=== PATIENT | female | born 1990 | race Caucasian/White ===

== ENCOUNTER 2020-03-01 15:47 | Emergency (ER) | payer OTHER ==
--- NOTE | 2020-03-01 16:16 | ED Physician Documentation ---
History of Present Illness - Stated complaint Stated Complaint: SOA - Chief complaint Chief Complaint: Resp - History obtained from History obtained from: Patient - History of Present Illness Timing: Today Pain level max: 0 Pain level now: 0 - Additonal information Additional information: 29-year-old female states that for the past week or so she every once in a while feels as if she is short of breath. She states it feels like she needs to yawn. This has not happened to her before. No fevers. No coughing. No history of asthma. Has never used inhalers. Does not smoke. She moved here about a year ago from [place]. Lived in [place] before that. Denies any possibility of . Is not breast-feeding. Review of Systems Constitutional: denies: Fever, Chills Nose: denies: Rhinorrhea / runny nose, Congestion Throat: denies: Sore throat Respiratory: denies: Cough GI: denies: Nausea, Vomiting, Diarrhea Skin: denies: Rash Musculoskeletal: denies: Neck pain Neurologic: denies: Headache PD PAST MEDICAL HISTORY - Past Medical History Past Medical History: No - Past Surgical History Past Surgical History: No - Present Medications Home Medications: Ambulatory Orders Medication Instructions Recorded Confirmed Albuterol Sulf [Ventolin Hfa 1 - 2 puffs INH Q4HR PRN #1 inhaler 03/01/20 Inhaler] - Allergies Allergies/Adverse Reactions: Allergies Allergy/AdvReac Type Severity Reaction Status Date / Time No Known Drug Allergies Allergy Verified 03/01/20 15:55 - Social History Does the pt smoke?: No Smoking Status: Never smoker Does the pt drink ETOH?: Yes Does the pt have substance abuse?: No - Immunizations Immunizations are current?: Yes PD ED PE NORMAL - Vitals Vital signs reviewed: Yes - General General: Alert and oriented X 3, No acute distress - HEENT HEENT: Moist mucous membranes - Neck Neck: Supple, no meningeal sign - Cardiac Cardiac: RRR - Respiratory Respiratory: No respiratory distress, Other (Diminished breath sounds and mild wheezing bilaterally) - Abdomen Abdomen: Soft, Non tender, Non distended - Derm Derm: Warm and dry - Neuro Neuro: Alert and oriented X 3 Results - Vitals Vitals: Vital Signs - 24 hr 03/01/20 03/01/20 03/01/20 15:50 16:25 17:01 Temperature 36.7 C 37.1 C Heart Rate 74 80 88 Respiratory 18 18 14 Rate Blood Pressure 132/96 H 133/66 H O2 Saturation 100 99 Oxygen O2 Source Room air - Rads (name of study) Chest x-ray Radiology: Prelim report reviewed, EMP read contemporaneously, See rad report (No acute abnormality) PD MEDICAL DECISION MAKING - ED course Complexity details: reviewed results, re-evaluated patient, considered differential, d/w patient ED course: 29-year-old female feels better after nebulizer treatment. Breathing easier. Wheezing resolved. Will prescribe an inhaler for home. She is well-appearing, nontoxic. No tachypnea or hypoxia. No evidence of pulmonary embolus. Patient counseled regarding signs and symptoms for which I believe and urgent re- evaluation would be necessary. Patient with good understanding of and agreement to plan and is comfortable going home at this time This document was made in part using voice recognition software. While efforts are made to proofread this document, sound alike and grammatical errors may occur. Departure - Departure Disposition: 01 Home, Self Care Clinical Impression: Dyspnea Qualifiers: Dyspnea type: shortness of breath Qualified Code(s): R06.02 - Shortness of breath Asthma Qualifiers: Asthma severity: mild Asthma persistence: intermittent Asthma complication type: uncomplicated Qualified Code(s): J45.20 - Mild intermittent asthma, uncomplicated Condition: Good Instructions: ED Reactive Airway Disease Follow-Up: DAGMAR SANCHEZ DO [Primary Care Provider] - As Needed Prescriptions: Albuterol Sulf [Ventolin Hfa Inhaler] 1 - 2 puffs INH Q4HR PRN #1 inhaler PRN Reason: Shortness Of Air/Wheezing Comments: Use the inhaler as needed. Return if you worsen. Follow-up with your doctor for further care. Discharge Date/Time: 03/01/20 17:01
[2020-03-01] MEDS: ALBUTEROL NEB 2.5 MG/3 ML INH STA (16:22)
[2020-03-01 17:02] VITALS: BP 133/66
--- NOTE | 2020-03-01 17:21 | XRAY Report ---
Reason: dyspnea Procedure Date: 03/01/2020 Accession Number: [id number] / [id number] Procedure: XR - Chest 1 View X-Ray CPT Code: 35771 Final Report FULL RESULT: EXAM: CHEST RADIOGRAPHY EXAM DATE: 03/01/2020 04:46 PM. CLINICAL HISTORY: Dyspnea. COMPARISON: None. TECHNIQUE: 1 portable view. FINDINGS: Lungs/Pleura: No focal opacities evident. No pleural effusion. No pneumothorax. Mediastinum: Within exam limitations, the cardiomediastinal contour is normal. Other: None. IMPRESSION: Normal portable chest. [facility]
== END 2020-03-01 17:01 | disposition home or self-care (01) ==
LOC: ED 15:47
DX: J45.20 Mild intermittent asthma, uncomplicated (principal)
CPT/HCPCS: 71045; 94640; 94664; 99283; 99284